=== PATIENT | male | born 2000 | race Caucasian/White ===

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

== ENCOUNTER 2019-06-12 11:21 | Outpatient (CLI) | payer OTHER, SELFPAY ==
[2019-06-12] VITALS (24 sets, daily range): BP systolic 95–154; BP diastolic 65–92; PULSE 58–96; RESP 12–23; TEMP 36.4–36.5; O2SAT 96–99
--- NOTE | 2019-06-12 11:24 | ED.GENADUL_ITS ---
Discharge Plan Disposition Patient Disposition: HOME Condition: Improving Discharge Details Chief Complaint: Palpitatns Clinical Impression: Palpitations Primary Care Provider: Rito Mcgee ED Provider: Mishel Sanchez Home Meds and New Rx's Prescriptions: No Action No Known Home Meds RF: 0 Discharge Instructions Instructions: Palpitations (ED) Additional Instructions: Drink plenty of fluids and get plenty of rest. Alternate tylenol and motrin as needed and directed for pain. Return the campus monitor to the hospital as directed by respiratory therapy. We will receive a call from care management regarding a follow-up appointment with the primary care doctor in the next 1 to 2 weeks. Return to the emergency department if you develop any worsening or new concerning symptoms. Discharge Data Discharge Physician: Mishel Sanchez Medical Decision Making 1120 -- 19-year-old male with a history of depression presents with intermittent palpitations, shortness of breath and right-sided chest pain over the past 2 weeks, with worse recently. Denies any chest pain at this time. EKG notes a rate of 74, sinus with no acute ST ischemic changes. Patient admits to increased personal stress and recent increase in drinking. No family history of sudden cardiac . BP mild to moderately hypertensive. Afebrile. Normal heart rate, respiratory rate and oxygen saturation noted. Patient appears mildly anxious. He has a 2/6 murmur noted left sternal border which is noted in his history since 2011. Differential diagnosis includes stress or anxiety, dehydration, viral syndrome, electrolyte abnormality, arrhythmia. History and presentation not consistent with PE or ACS. PERC negative. Will check screening labs, chest x-ray and give fluids and Ativan and reassess. 1300 -- labs and imaging reviewed and unremarkable. Normal d-dimer, troponin, TSH. Normal chest x-ray. Patient reassessed -he states he feels much better. Heart rate 50s to 70s on monitor throughout ED stay while at rest on the stretcher. Unclear if this rate variation could be the sensation of his palpitations. A repeat EKG was obtained which noted a rate of 59, first-degree block with TN at 238, with normal QTC and QRS no ischemic change. Case and EKG reviewed with cardiology Dr. Talamantes and he agrees with plan for discharge home with Holter monitor. Feels that the first-degree block is likely incidental and not source of his symptoms. Patient placed on care management list to arrange for follow-up appoint with the primary care doctor for reevaluation. Patient feels good to go home. He was advised to return with any concerns. Medical Records Medical records reviewed: Yes I reviewed the patient's medical records. Imaging Data Radiologic Study: Radiologist's impression: XR CHEST 2V PA LATERAL CLINICAL HISTORY: R sided chest pain, sob, r/o acute disease R sided chest pain, sob, r/o acute disease TECHNIQUE: 2D digital imaging was performed. COMPARISON: ACROMIO CLAVICULAR JOINTS from 10/05/2017 FINDINGS: The heart is not enlarged. The lungs are clear and well expanded. No pleural effusion seen. Mediastinal contours appear intact. IMPRESSION: Normal chest Lab Data Lab results reviewed: Yes I reviewed the patient's lab results. Labs: Laboratory Tests Range/Units 06/12/19 06/12/19 06/12/19 11:50 11:50 11:50 WBC (4.4-10.8) k/cumm 6.60 RBC (4.50-6.00) m/cumm 6.36 H Hgb (13.5-17.5) g/dL 13.3 L Hct (40.0-50.0) % 40.4 MCV (80-95) fL 63.5 L MCH (27.0-33.0) pg 20.9 L MCHC (32.0-36.0) g/dL 32.9 RDW (11.8-14.1) % 17.8 H Plt Count (130-400) x1000/uL 329 MPV (8.0-11.0) fL 10.6 Immature Gran % % 0.3 Neutrophils % 68.2 Lymphocytes % 20.0 Monocytes % 9.8 Eosinophils % 1.4 Basophils % 0.3 Absolute Neutrophils (1.2-6.7) k/cumm 4.50 Absolute Lymphocytes (1.2-3.4) k/cumm 1.32 Absolute Monocytes (0.11-0.7) k/cumm 0.65 Absolute Eosinophils (0.0-0.7) k/cumm 0.09 Absolute Basophils (0.0-0.2) k/cumm 0.02 Differential Comment Rbc morph reviewed RBC Morphology See below Anisocytosis 1+ Microcytosis 3+ D-Dimer (<500) ng/mlFEU 293 Sodium (136-145) mmol/L 139 Potassium (3.5-5.1) mmol/L 3.8 Chloride (98-107) mmol/L 103 Carbon Dioxide (21.0-32.0) mmol/L 25.3 Anion Gap (3-11) mmol/L 10.7 BUN (7-18) mg/dL 8 Creatinine (0.70-1.30) mg/dL 0.81 Estimated GFR/1.73 m2 (mL/min/1.73m2) >= 60.00 Glucose (74-106) mg/dL 85 Calcium (8.5-10.1) mg/dL 9.2 Magnesium (1.8-2.4) mg/dL 2.2 Total Bilirubin (0.2-1.0) mg/dL 0.7 AST (15-37) U/L 17 ALT (16-63) U/L 26 Alkaline Phosphatase (46-116) U/L 75 Troponin I (<0.06) ng/Ml < 0.05 Total Protein (6.4-8.2) g/dL 8.1 Albumin (3.4-5.0) g/dL 4.3 TSH (0.36-3.74) uIU/mL 1.40 ECG Data Attestation: I personally reviewed and interpreted this ECG (s) as follows: Interpretation: # 1 -- Rate of 74, sinus. No acute ST elevation or depression. TN 204. QTc 410. QRS 98. No acute change from previous EKG 2018. # 2 -- Rate of 59, sinus. No acute ST elevation or depression. First degree block, TN 238. QTc 406. QRS 94. HPI General Mode of arrival: ambulatory . Date/Time Provider Initiated Documentation: 06/12/19 11:22 . Limitations to Documentation: no limitations . Information obtained by: patient . HPI Narrative: Patient is a 19-year-old male with history of depression presents with intermittent feelings of palpitations, right-sided chest pain and shortness of breath over the past 2 weeks, becoming more frequently over the past few days and worse today. Patient states he has had similar episode in the past before but has not sought medical care. Patient states that he feels like his symptoms might be due to stress as he states he has a lot of personal stress currently. He states the symptoms are usually worse at night but today is worse throughout the day. He denies any exacerbating or alleviating factors. He does admit to drinking more frequently over the past few weeks, and that 3 days ago he drank a half bottle of liquor and several beers. States he drank 4 beers last night. He admits to daily marijuana use but states this is no worse than usual. He denies any caffeine or other drug use. He denies any recent travel, recent surgeries, recent injury, fever, cough, nausea, vomiting. He does admit to intermittent dizziness with his symptoms. Related Data Home Medications Medication Instructions Recorded Confirmed Unknown [No Known Home Meds] 12/19/17 03/06/18 Allergies Allergy/AdvReac Type Severity Reaction Status Date / Time cat dander Allergy Verified 06/12/19 11: dog dander Allergy Verified 06/12/19 11:27 No Known Drug Allergies Allergy Verified 06/12/19 11:27 General CHIDI: 2 Review of Systems All systems reviewed & are unremarkable except as noted in HPI and below Constitutional Constitutional: Reports as per HPI, Denies chills and Denies fever(s) Eyes Eyes: Denies blurry vision ENT Ears, Nose, Mouth, and Throat: Denies dizziness, Denies sore throat and Denies throat swelling Cardiovascular Cardiovascular: Reports chest pain, Reports rapid heart rate and Reports dyspnea Respiratory Respiratory: Denies cough and Reports dyspnea Gastrointestinal Gastrointestinal: Denies abdominal pain, Denies diarrhea and Denies vomiting Genitourinary Genitourinary: Denies hematuria and Denies dysuria Musculoskeletal Musculoskeletal: Denies back pain and Denies numbness Integumentary/Breasts Skin/Breast: Denies lesions and Denies rash Neurologic Neurologic: Denies dizziness, Denies localized weakness and Denies numbness Allergic/Immunologic Allergic/Immunologic: Denies throat swelling [facility] Medical History (Updated 06/12/19 @ 12:09 by Mishel Sanchez DO) AC joint dislocation (10/12/17) Left shoulder Appendicitis (Acute) Depression Drug overdose (Acute) snorting focalin 12/24/17 seen in ER Left wrist fracture surgically repaired Surgical History Left wrist fracture S/P laparoscopic appendectomy (Acute ~10/2017) Social History (Reviewed 12/24/17 @ 21:09 by FAWN Abbott Smoking/Tobacco Use Status: Current every day Alcohol Intake: current Alcohol Intake frequency: 3 or more drinks per day Alcohol type: beer Drug use: Daily Substance use type: marijuana Details: Drinks most days. Do you feel safe at home: Yes Do you feel safe in your relationship?: Yes Additional Social history: states not currently in a relationship Exam Const General: cooperative, healthy appearing and anxious (mild) HENMT Head: normal to inspection Face and sinus: normal facial exam Eyes General: appearance normal, both eyes and all related structures Pupils: PERRL EOM: EOM intact bilaterally Neck Neck: normal visual inspection and No submandibular swelling Lymphatic: no lymphadenopathy noted Chest Chest: normal inspection of the chest and no tenderness Resp Effort & Inspection: normal respiratory effort and able to speak in complete sentences Auscultation: clear to auscultation bilaterally Cardio Rate: regular rate Rhythm: regular rhythm GI Inspection: normal to inspection and scar (well healed, LLQ ) Palpation: soft, not firm, not rigid and nontender Auscultation: normal bowel sounds Back/Spine/Pelvis Thoracic/Lumbar Spine: thoracic and lumbar spine normal to inspection Skin General skin exam: no rashes or lesions noted Neuro General: patient alert, patient awake and patient oriented x3 Cognition: normal cognition Speech: speech normal Motor: muscle tone normal throughout Sensory Exam: no sensory deficits noted Extrem General: normal to inspection, full ROM, capillary refill normal, no calf tenderness bilaterally and no edema Psych Appearance: grossly normal Mental Status: mental status grossly normal Speech and Movement: speech and movement normal Affect: normal affect
[2019-06-12] MEDS: LORazepam 0.5 MG TAB PO (12:00)
[2019-06-12] MEDS: Normal Saline 1,000 ML 1000 ML IV (12:00)
[2019-06-12] MEDS: Normal Saline Flush 10 ML SYR IVP (12:02)
[2019-06-12 12:04] LABS: Abs Immature Grans 0.02 k/cumm (0.0-0.09); Absolute Basophil Count 0.02 k/cumm (0.0-0.2); Absolute Eosinophil Count 0.09 k/cumm (0.0-0.7); Absolute Lymphocyte Count 1.32 k/cumm (1.2-3.4); Absolute Monocyte Count 0.65 k/cumm (0.11-0.7); Basophils % 0.3; Eosinophils % 1.4; HCT 40.4 % (40.0-50.0); HGB 13.3 g/dL (13.5-17.5); Immature Grans % 0.3 %; Mean Corp. HGB Concentration 32.9 g/dL (32.0-36.0); Mean Corpuscular Hemoglobin 20.9 pg (27.0-33.0); Mean Corpuscular Volume 63.5 fL (80-95); Mean Platelet Volume 10.6 fL (8.0-11.0); Monocytes % 9.8; Neutrophils % 68.2; Platelet Count 329 x1000/uL (130-400); RBC 6.36 m/cumm (4.50-6.00); RBC Distribution Width 17.8 % (11.8-14.1)
[2019-06-12 12:15] LABS: Anisocytosis 1+; Diff Comment RBC Morph Reviewed; Microcytosis 3+
[2019-06-12 12:29] LABS: ALT 26 U/L (16-63); AST 17 U/L (15-37); Albumin 4.3 g/dL (3.4-5.0); Alkaline Phosphatase 75 U/L (46-116); Anion Gap 10.7 mmol/L (3-11); BUN 8 mg/dL (7-18); Bilirubin, Total 0.7 mg/dL (0.2-1.0); CO2 25.3 mmol/L (21.0-32.0); CREATININE 0.81 mg/dL (0.70-1.30); Calcium 9.2 mg/dL (8.5-10.1); Chloride 103 mmol/L (98-107); Glucose 85 mg/dL (74-106); Magnesium 2.2 mg/dL (1.8-2.4); Potassium 3.8 mmol/L (3.5-5.1); Sodium 139 mmol/L (136-145); Total Protein 8.1 g/dL (6.4-8.2)
[2019-06-12 12:30] LABS: Troponin I < 0.05 ng/Ml (<0.06)
--- NOTE | 2019-06-12 12:30 | DI.RAD_ITS ---
EXAM: XR CHEST 2V PA LATERAL XR CHEST 2V PA LATERAL CLINICAL HISTORY: R sided chest pain, sob, r/o acute disease R sided chest pain, sob, r/o acute disease TECHNIQUE: 2D digital imaging was performed. COMPARISON: ACROMIO CLAVICULAR JOINTS from 10/05/2017 FINDINGS: The heart is not enlarged. The lungs are clear and well expanded. No pleural effusion seen. Mediastin al contours appear intact. IMPRESSION: Normal chest
[2019-06-12 12:57] LABS: D-Dimer 293 ng/mlFEU (<500)
--- NOTE | 2019-06-16 08:45 | W.HOLTRPT ---
Date of service: 06/16/19 Time of Service: 08:45 Holter Monitor Report Holter Monitor Note: Ordered for the indication of palpitations. ?Patient was in normal sinus rhythm for the majority of the recording. ?There were 0 episodes of supraventricular tachycardia and 2 singular premature atrial contractions. ?There were no episodes of ventricular tachycardia and 7 singular ventricular ectopic beats. ?There were no episodes of atrial fibrillation no pauses greater than 3 seconds and no evidence of high degree heart block. ?There were no patient triggered events.
--- NOTE | 2019-06-16 08:48 | W.ZIOMONITOR ---
Date of service: 06/16/19 Time of Service: 08:48
== END 2019-06-14 18:53 ==
LOC: ER 13:58 → RT 06-14 18:34
PROVIDERS: Emergency Provider Physician Assistant; PCP Pediatrics; Visit Provider Pediatrics
DX: R00.2 Palpitations (principal); I49.1 Atrial premature depolarization; I49.3 Ventricular premature depolarization
CPT/HCPCS: 80053; 71046; 83735; 84443; 84484; 85025; 85379; 93225; 93226

== ENCOUNTER 2019-06-12 18:05 | Emergency (ER) | payer OTHER, SELFPAY | END 2019-06-12 18:20 | disposition home or self-care (01) | LOC: ER 06-19 18:07 | PROVIDERS: Emergency Provider Physician Assistant; PCP Pediatrics | DX: R00.2 Palpitations (principal); F43.0 Acute stress reaction | CPT/HCPCS: 36415; 80053; 93005; 99285; 71046; 83735; 84443; 84484; 85025; 85379; 93010; 93225 ==

== ENCOUNTER 2019-06-14 18:33 | Emergency (ER) | payer OTHER, SELFPAY ==
--- NOTE | 2019-06-18 17:37 | NUR.NOTE ---
Nursing Note: Entered in error by Access. Kelley Bustos.
== END 2019-06-18 17:37 | disposition other institution (70) ==
PROVIDERS: Emergency Provider Emergency Medicine; PCP Family Medicine
DX: R69 Illness, unspecified (principal)

== ENCOUNTER 2019-09-03 07:33 | Outpatient (CLI) | payer OTHER, SELFPAY ==
--- NOTE | 2019-09-03 08:14 | DI.RAD_ITS ---
EXAM: XR CHEST 2V PA LATERAL CLINICAL HISTORY: can't take a deep breath, sob, r06.02,smoker TECHNIQUE: 2D digital imaging was performed. COMPARISON: No exams were available for comparison FINDINGS: MEDIASTINUM: Normal. HEART: Normal. PULMONARY VASCULATURE: Normal. LUNGS: Clear. PLEURAL SPACE: No pleural effusion or pneumothorax. BONE:Normal. OTHER FINDINGS:Normal. IMPRESSION: No acute pulmonary findings. DATA REPOSITORY: RADIATION DOSE DELIVERED:
[2019-09-03 08:56] LABS: D-Dimer 124 ng/mlFEU (<500)
== END 2019-09-03 07:53 ==
PROVIDERS: PCP Family Medicine; Visit Provider Family Medicine
DX: R06.02 Shortness of breath (principal); F17.200 Nicotine dependence, unspecified, uncomplicated
CPT/HCPCS: 36415; 71046; 85379

== ENCOUNTER 2020-02-18 01:56 | Outpatient (CLI) | payer OTHER, SELFPAY ==
[2020-02-21 13:52] LABS: Patient Race White; SARS-CoV-2 RNA Undetected (Undetected); SARS-CoV-2 Specimen Source Nasal
== END 2020-02-18 02:16 ==
PROVIDERS: PCP Family Medicine; Visit Provider Family Medicine
DX: R51.9 Headache, unspecified (principal); Z20.828 Contact with and (suspected) exposure to other viral communicable diseases
CPT/HCPCS: U0003

== ENCOUNTER 2020-03-09 10:38 | Emergency (ER) | payer OTHER, SELFPAY ==
[2020-03-09 10:42] VITALS: BP 153/90; PULSE 85; RESP 17; TEMP 36.4; O2SAT 95
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
== END 2020-03-09 11:22 | disposition home or self-care (01) ==
PROVIDERS: Emergency Provider Emergency Medicine; PCP Family Medicine
DX: S63.591A Other specified sprain of right wrist, initial encounter (principal); V48.6XXA Car passenger injured in noncollision transport accident in traffic accident, initial encounter
CPT/HCPCS: 29125; 99283; 73110

== ENCOUNTER 2020-05-12 09:45 | Outpatient (CLI) | payer OTHER, SELFPAY ==
[2020-05-15 14:01] LABS: Testosterone, Free 16.5 ng/dL (5.25-20.7); Testosterone, Total 501 ng/dL (240-950)
== END 2020-05-12 09:46 | disposition home or self-care (01) ==
LOC: LOS 09:45
PROVIDERS: PCP Family Medicine; Visit Provider Family Medicine
DX: Z00.00 Encounter for general adult medical examination without abnormal findings (principal); N52.9 Male erectile dysfunction, unspecified
CPT/HCPCS: 36415; 84402; 84403

== ENCOUNTER 2020-10-29 10:09 | Outpatient (CLI) | payer OTHER, SELFPAY ==
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
== END 2020-10-29 10:29 ==
PROVIDERS: PCP Family Medicine; Visit Provider Physician Assistant Medical
DX: S99.922A Unspecified injury of left foot, initial encounter (principal); X58.XXXA Exposure to other specified factors, initial encounter
CPT/HCPCS: 73660

== ENCOUNTER 2021-08-24 15:00 | Emergency (ER) | payer OTHER, SELFPAY ==
[2021-08-24 15:10] VITALS: BP 141/77; PULSE 86; RESP 16; TEMP 36.8; O2SAT 98
--- NOTE | 2021-08-24 16:18 | ED.GENADUL_ITS ---
Discharge Plan Disposition Patient Disposition: HOME Condition: Stable Discharge Details Clinical Impression: Strain of muscle and tendon of back wall of thorax, initial encounter Primary Care Provider: Virgilio Perales ED Provider: Son Bradley Home Meds and New Rx's Prescriptions: New cyclobenzaprine 5 mg tablet 5 - 10 mg PO TID PRN (Reason: muscle spasm) Qty: 20 0RF diclofenac potassium 50 mg tablet 50 mg PO TID PRN (Reason: pain) Qty: 14 0RF No Action tadalafil 20 mg tablet 20 mg PO DAILY PRN (Reason: sexual activity) Qty: 30 3RF Rx Instructions: administer approximately 30min before sexual activity; do not use more than 1 dose per 24hrs Discharge Instructions Instructions: Muscle Strain (ED), Back Pain (ED) Additional Instructions: Please take medication as prescribed and continue gentle stretching and range of motion activities. While on prescribed medication please do not take any [id number] NSAIDs which include aspirin, ibuprofen/Motrin, or Aleve. You may take acetaminophen/Tylenol if needed for additional pain control. If you are not improving in the next week please follow-up with your primary care provider and return to emergency department for any new or significant worsening of symptoms. Stand Alone Forms: Work Release Referrals: Virgilio Perales MD [Primary Care Provider] - 1 week (If not improving) Medical Decision Making Patient presenting to the emergency department for chief complaint of back pain. He states he was lifting a mattress and felt something pull in his mid right back. Patient denies any injury or blunt trauma. Patient denies any previous back injuries and states no systemic symptoms. Patient has reproducible tenderness with palpation of paraspinal and subscapular area to the right mid back. No focal tenderness to palpation of the spine, mild to moderate reduction of range of motion secondary to discomfortand exam is otherwise unremarkable. Given clear mechanical injury with no worrisome or emergent findings for life- threatening back pain we will plan on giving patient IM injection of ketorolac. Will prescribe patient NSAIDs along with Flexeril for home use and allow for time off work. Conservative management of back pain was discussed with patient along with clear return and follow-up precautions if not improving. No radiological imaging is required at this time. After discussion of diagnosis and plan of care patient has no further needs, questions, or concerns and states clear understanding to return to the emergency department for any worsening symptoms. HPI General Mode of arrival: ambulatory . Date/Time Provider Initiated Documentation: 08/24/21 15:23 . Limitations to Documentation: no limitations . Information obtained by: patient . History of Present Illness 21 year old M presents to the emergency department with the chief complaint of Right sided back pain, described as moderate, with intensity rated at 8. Quality is described as sharp, and is localized to the back. Patient reports no radiation. Patient started experiencing this hour(s) (5) and it has been constant. Immobilization improves symptom(s), Movement worsens symptoms . Patient notes no other symptoms.. Patient did receive the following treatments prior to arrival, NSAID (400mg at 1200) Related Data Home Medications Medication Instructions Recorded Confirmed tadalafil 20 mg tablet 20 mg PO DAILY PRN sexual activity 08/04/21 08/24/21 #30 tabs cyclobenzaprine 5 mg tablet 5 - 10 mg PO TID PRN muscle spasm 08/24/21 #20 tabs diclofenac potassium 50 mg tablet 50 mg PO TID PRN pain #14 tabs 08/24/21 Previous Rx's Medication Instructions Recorded tadalafil 20 mg tablet 20 mg PO DAILY PRN sexual activity 08/04/21 #30 tabs cyclobenzaprine 5 mg tablet 5 - 10 mg PO TID PRN muscle spasm 08/24/21 #20 tabs diclofenac potassium 50 mg tablet 50 mg PO TID PRN pain #14 tabs 08/24/21 Allergies Allergy/AdvReac Type Severity Reaction Status Date / Time cat dander Allergy Verified 08/24/21 15:15 dog dander Allergy Verified 08/24/21 15:15 No Known Drug Allergies Allergy Verified 08/24/21 15:15 General Stated Complaint: Nk/Back Pain CHIDI: 4 Review of Systems Constitutional Constitutional: Denies chills and Denies fever(s) Cardiovascular Cardiovascular: Denies chest pain and Denies dyspnea on exertion Respiratory Respiratory: Denies cough and Denies dyspnea on exertion Gastrointestinal Gastrointestinal: Denies abdominal pain, Denies change in bowel habits, Denies diarrhea, Denies nausea and Denies vomiting Genitourinary Genitourinary: Denies difficulty urinating and Denies urinary incontinence Musculoskeletal Musculoskeletal: Reports as per HPI and Reports back pain Neurologic Neurologic: Denies sensory deficit PFSH All Active Problems Strain of muscle and tendon of back wall of thorax, initial encounter (Acute) Erectile dysfunction (Acute) SOB (shortness of breath) (Acute) Palpitations (Acute) Routine sports examination for healthy child or adolescent (Acute 08/09/11) Body mass index (BMI) of 5th to 84th percentile for age in childhood (Acute 02/03/16) Heart murmur (Acute 11/15/11) innocent Depression (Acute 04/24/16) Chronic allergic rhinitis (Acute 01/10/17) Drug overdose (Acute) snorting focalin 12/24/17 seen in ER Acute appendicitis with localized peritonitis (Acute) Medical History AC joint dislocation (10/12/17) Left shoulder Appendicitis Depression Left wrist fracture surgically repaired Surgical History Left wrist fracture S/P laparoscopic appendectomy (~10/2017) Family History Mother Healthy adult on routine physical examination Hyperthyroidism Father Healthy adult on routine physical examination Other Diabetes MGF. MGGF, PGM Alcohol abuse MGGM Heart disease PGM Hyperthyroidism MGGM, Mat great aunt Neoplasm MGM, MGF Social History Smoking/Tobacco Use Status: Former Tobacco Use Tobacco: How many years used: 3 Smoking risk assessment performed?: Yes Alcohol Intake: current Alcohol Intake frequency: a few times a month Alcohol type: beer Drug use: Never Substance use type: does not use Caregiver/Support person: No Household members: significant other Housing: apartment Communication Needs: None Do you need help understanding health information?: Rarely Pets and animals: No Sexually active: Yes Do you think of yourself as: straight/heterosexual Current gender identity: male What is your relationship status?: living with partner How often do you talk on the phone with friends or family?: decline to answer How often do you get together with friends or relatives?: decline to answer How often do you attend restorationist or synagogue services?: decline to answer Panel score (0-1 are the most socially isolated patients): 1 Rita/Muslim: No preference Do you feel safe at home: Yes Do you feel safe in your relationship?: Yes Exam Const General: cooperative and no acute distress Orientation: alert, awake and oriented x3 Neck Neck: normal visual inspection, full ROM and no meningeal signs Resp Effort & Inspection: normal respiratory effort Auscultation: clear to auscultation bilaterally Cardio Rate: regular rate Rhythm: regular rhythm Heart Sounds: S1 normal and S2 normal Back/Spine/Pelvis Cervical Spine: normal cervical lordosis, No cervical muscular tenderness and No pain with cervical ROM Thoracic/Lumbar Spine: thoracic and lumbar spine normal to inspection, pain with thoraco-lumbar ROM, thoraco-lumbar ROM limited, No thoracic spinal tenderness, No lumbar spinal tenderness and other (Tenderness to palpation of paraspinal and subscapular area on the right mid) Neuro General: patient alert, patient awake, patient oriented x3 and no focal motor deficits Cognition: normal cognition Speech: speech normal Gait: normal gait Motor: muscle tone normal throughout, strength 5/5 throughout and no movement abnormalities noted Course Vital Signs Vital signs: Vital Signs Temperature 36.8 C 08/24/21 15:10 Pulse 86 08/24/21 15:10 Respiratory Rate 16 08/24/21 15:10 Blood Pressure 141/77 H 08/24/21 15:10 Pulse Oximetry 98 08/24/21 15:10 Temperature 36.8 C 08/24/21 15:10 Temperature Source Skin 08/24/21 15:10 Pulse 86 08/24/21 15:10 Respiratory Rate 16 08/24/21 15:10 Respiratory Effort 08/24/21 16:03 Blood Pressure 141/77 H 08/24/21 15:10 Blood Pressure Position Sitting 08/24/21 15:10 Pulse Oximetry 98 08/24/21 15:10 Oxygen Delivery Method Room Air 08/24/21 15:10 Oxygen Flow Rate 0 08/24/21 15:10 Pain Level 8 08/24/21 15:10 Comment 08/24/21 15:10
[2021-08-24] MEDS: Ketorolac 30 MG/ML VIAL IM (16:25)
== END 2021-08-24 16:30 | disposition home or self-care (01) ==
PROVIDERS: Emergency Provider Nurse Practitioner Family; PCP Family Medicine
DX: S29.002A Unspecified injury of muscle and tendon of back wall of thorax, initial encounter (principal); X50.0XXA Overexertion from strenuous movement or load, initial encounter
CPT/HCPCS: 96372; 99284; 99283; J1885

== ENCOUNTER 2022-10-27 19:23 | Emergency (ER) | payer OTHER, SELFPAY ==
[2022-10-27 19:29] VITALS: BP 132/84; PULSE 82; RESP 20; TEMP 36.8; O2SAT 99
--- NOTE | 2022-10-27 20:10 | W.ED.GENAD ---
Discharge Plan Disposition Patient Disposition: Home Condition: Good Discharge Details Clinical Impression: Hemorrhoid Primary Care Provider: Virgilio Perales ED Provider: Sunil Mosqueda Home Meds and New Rx's Prescriptions: New hydrocortisone acetate [Anusol-HC] 25 mg suppository 25 mg MS BID Qty: 12 0RF hydrocortisone acetate [Anusol-HC] 25 mg suppository 25 mg MS BID Qty: 12 0RF No Action tadalafil 20 mg tablet 20 mg PO DAILY PRN (Reason: sexual activity) Qty: 30 3RF Rx Instructions: administer approximately 30min before sexual activity; do not use more than 1 dose per 24hrs Discharge Instructions Instructions: Hemorrhoids (ED) Additional Instructions: At this time you do have a notable hemorrhoid. Please apply the suppository twice daily as directed. Please continue to take Tylenol and Motrin as needed for pain. Please purchase jlox-umo-ozxcosl sitz bath's and use these 2-3 times per day. Avoid any hard bowel movements or straining. If you notice any worsening of your symptoms, or any new symptoms such as vomiting, diarrhea, fever, chills, shortness of breath, chest pain, numbness, weakness, or fainting , please return immediately to the emergency department for reevaluation. Please follow up with your primary care provider as soon as possible for reassessment and reevaluation. As always, it was a pleasure participating in your medical care today. Stand Alone Forms: Work Release Referrals: Virgilio Perales MD [Primary Care Provider] - Medical Decision Making 22-year-old male presents today for evaluation of rectal pain. Patient states that for the last week he has had a bulge near his rectum, and pain with having bowel movements. Pain is made worse when he sits for long amount of time. He denies any fever or chills. He denies any blood. No other complaints at this time. No other modifying factors. Patient did use yasc-mul-zheticd hemorrhoid cream which has slightly helped. Exam demonstrates a large nonthrombosed hemorrhoid. No active bleeding. Mild tenderness. No evidence of abscess or cellulitis otherwise. Hemorrhoid is not amendable to ligation at this time. Will prescribe Anusol suppository, and recommend sitz bath's and NSAIDs. Patient already is taking stool softener. Discussed red flags for which to return. I have extensively reviewed the treatment plan and discharge instructions with the patient. I have addressed all patient concerns at this time. The patient was made aware of what symptoms to monitor for that would warrant a return to the emergency department. Discussed the plan with the patient, they demonstrate verbal understanding and agreement with our assessment and plan at this time. The documentation in this chart was dictated using [employer] dictation software. Please excuse any dictation errors. HPI General Date/Time Provider Initiated Documentation: 10/27/22 20:10. HPI Narrative: 22-year-old male presents today for evaluation of rectal pain. Patient states that for the last week he has had a bulge near his rectum, and pain with having bowel movements. Pain is made worse when he sits for long amount of time. He denies any fever or chills. He denies any blood. No other complaints at this time. No other modifying factors. Patient did use vzed-ccg-ehmaofx hemorrhoid cream which has slightly helped. Related Data Home Medications Medication Instructions Recorded Confirmed tadalafil 20 mg tablet 20 mg PO DAILY PRN sexual activity 08/04/21 10/27/22 #30 tabs hydrocortisone acetate 25 mg 25 mg MS BID #12 ea 10/27/22 rectal suppository (Anusol-HC) hydrocortisone acetate 25 mg 25 mg MS BID #12 ea 10/27/22 rectal suppository (Anusol-HC) Previous Rx's Medication Instructions Recorded tadalafil 20 mg tablet 20 mg PO DAILY PRN sexual activity 08/04/21 #30 tabs hydrocortisone acetate 25 mg 25 mg MS BID #12 ea 10/27/22 rectal suppository (Anusol-HC) hydrocortisone acetate 25 mg 25 mg MS BID #12 ea 10/27/22 rectal suppository (Anusol-HC) Allergies Allergy/AdvReac Type Severity Reaction Status Date / Time cat dander Allergy Verified 08/24/21 15:15 dog dander Allergy Verified 08/24/21 15:15 No Known Drug Allergies Allergy Verified 08/24/21 15:15 General Stated Complaint: GenMedical CHIDI: 4 Review of Systems All systems reviewed & are unremarkable except as noted in HPI and below PFSH All Active Problems Hemorrhoid (Acute) Encounter for immunization (Acute) Erectile dysfunction (Acute) SOB (shortness of breath) (Acute) Palpitations (Acute) Routine sports examination for healthy child or adolescent (Acute 08/09/11) Body mass index (BMI) of 5th to 84th percentile for age in childhood (Acute 02/03/16) Heart murmur (Acute 11/15/11) innocent Depression (Acute 04/24/16) Chronic allergic rhinitis (Acute 01/10/17) Drug overdose (Acute) snorting focalin 12/24/17 seen in ER Acute appendicitis with localized peritonitis (Acute) Medical History AC joint dislocation (10/12/17) Left shoulder Appendicitis Depression Left wrist fracture surgically repaired Surgical History Left wrist fracture S/P laparoscopic appendectomy (~10/2017) Family History Mother Healthy adult on routine physical examination Hyperthyroidism Father Healthy adult on routine physical examination Other Diabetes MGF. MGGF, PGM Alcohol abuse MGGM Heart disease PGM Hyperthyroidism MGGM, Mat great aunt Neoplasm MGM, MGF Social History Smoking/Tobacco Use Status: Former Tobacco Use Tobacco: How many years used: 3 Smoking risk assessment performed?: Yes Alcohol Intake: current Alcohol Intake frequency: a few times a month Alcohol type: beer Drug use: Never Substance use type: does not use Caregiver/Support person: No Household members: significant other Housing: apartment Communication Needs: None Do you need help understanding health information?: Rarely Pets and animals: No Sexually active: Yes Do you think of yourself as: straight/heterosexual Current gender identity: male What is your relationship status?: living with partner How often do you talk on the phone with friends or family?: decline to answer How often do you get together with friends or relatives?: decline to answer How often do you attend gnosticist or gnosticism services?: decline to answer Panel score (0-1 are the most socially isolated patients): 1 Rita/Restoration: No preference Do you feel safe at home: Yes Do you feel safe in your relationship?: Yes Exam Narrative Exam Narrative: 1.Const: Well-nourished, Well-developed, appearing stated age 2.Eyes: PERRL, no conjunctival injection, and symmetrical lids. 3.ENT: Atraumatic external nose and ears. Moist MM. Neck: Symmetric, trachea midline, No thyromegaly. 4.CVS: +S1/S2, No murmurs or gallops. Peripheral pulses 2+ and equal in all extremities. Brisk capillary refill in all extremities. 5.RESP: Unlabored respiratory effort. Clear to auscultation bilaterally. No wheezes rales or rhonchi 6.GI: Soft, Nontender/Nondistended, No hepatosplenomegaly. No guarding or rebound. Rectal exam demonstrates evidence of a large nonthrombosed hemorrhoid. No rectal or perirectal abscess. No active bleeding. No rectal prolapse. 7.MSK: Normocephalic/Atraumatic, Extremities w/o deformity or ttp No cyanosis or clubbing, Normal movement of all extremities 8.Skin: Warm, Dry. No rashes or lesions. 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 Sensation grossly intact, no focal neurologic deficits. 10.Psych: (AAO) x3. Appropriate mood and affect Course Vital Signs Vital signs: Vital Signs Temperature 36.8 C 10/27/22 19:29 Pulse 82 10/27/22 19:29 Respiratory Rate 20 10/27/22 19:29 Blood Pressure 132/84 10/27/22 19:29 Pulse Oximetry 99 10/27/22 19:29 Temperature 36.8 C 10/27/22 19:29 Temperature Source Oral 10/27/22 19:29 Pulse 82 10/27/22 19:29 Respiratory Rate 20 10/27/22 19:29 Respiratory Effort Normal 10/27/22 19:35 Blood Pressure 132/84 10/27/22 19:29 Blood Pressure Position Sitting 10/27/22 19:29 Pulse Oximetry 99 10/27/22 19:29 Oxygen Delivery Method Room Air 10/27/22 19:29 Oxygen Flow Rate 0 10/27/22 19:29
== END 2022-10-27 20:17 | disposition home or self-care (01) ==
PROVIDERS: Emergency Provider Student in an Organized Health Care Education/Training Program; PCP Family Medicine
DX: K64.9 Unspecified hemorrhoids (principal)
CPT/HCPCS: 99283

== ENCOUNTER 2023-03-29 10:05 | Outpatient (CLI) | payer OTHER, SELFPAY ==
[2023-03-29 13:34] LABS: Calculated LDL 169 mg/dL (<100); Cholesterol 237 mg/dL (<200); Glucose 91 mg/dL (74-106); HDL Cholesterol 48 mg/dL (40-60); Triglyceride 104 mg/dL (<150)
== END 2023-03-29 10:06 | disposition home or self-care (01) ==
LOC: LOS 10:06
PROVIDERS: PCP Family Medicine; Visit Provider Family Medicine
DX: E78.5 Hyperlipidemia, unspecified (principal); R73.9 Hyperglycemia, unspecified
CPT/HCPCS: 36415; 80061; 82947

== ENCOUNTER 2023-08-22 20:54 | Emergency (ER) | payer OTHER, SELFPAY ==
[2023-08-22 20:57] VITALS: BP 148/104; PULSE 98; RESP 18; TEMP 36.9; O2SAT 96
--- NOTE | 2023-08-22 21:08 | ED.GENADUL_ITS ---
Discharge Plan Disposition Patient Disposition: Home Condition: Stable Discharge Details Clinical Impression: Corneal abrasion, right Primary Care Provider: Virgilio Perales ED Provider: Lopez Hayes [place] Meds and New Rx's Prescriptions: Continued sildenafil 100 mg tablet 100 mg PO DAILY PRN (Reason: sexual activity) Qty: 30 5RF Rx Instructions: administer 30 minutes to 4 hours before activity Discharge Instructions Additional Instructions: You have a small abrasion on your eye that usually heals quickly. If not better within a week follow-up with your primary care provider If you feel more ill, have decrease in vision or high fevers return to the emergency department for reevaluation HPI General Mode of arrival: ambulatory . Date/Time Provider Initiated Documentation: 08/22/23 20:56 . Limitations to Documentation: no limitations . Information obtained by: patient . History of Present Illness 23 year old M presents to the emergency department with the chief complaint of right eye discomfort, Patient reports no radiation. Patient started experiencing this day(s) (1) and it has been constant. No relieving factors improve symptom(s), No exacerbating factors reported . Patient notes denies fever/chills. Patient did receive the following treatments prior to arrival, none Related Data Home Medications Medication Instructions Recorded Confirmed sildenafil 100 mg tablet 100 mg PO DAILY PRN sexual 08/07/23 08/22/23 activity #30 tabs Previous Rx's Medication Instructions Recorded sildenafil 100 mg tablet 100 mg PO DAILY PRN sexual 08/07/23 activity #30 tabs Allergies Allergy/AdvReac Type Severity Reaction Status Date / Time cat dander Allergy Verified 03/29/23 09:30 dog dander Allergy Verified 03/29/23 09:30 No Known Drug Allergies Allergy Verified 03/29/23 09:30 General Stated Complaint: EyeProblem CHIDI: 4 Review of Systems All systems reviewed & are unremarkable except as noted in HPI and below Constitutional Constitutional: Denies chills, Denies fever(s) and Denies weakness Eyes Eyes: Denies loss of vision Gastrointestinal Gastrointestinal: Denies vomiting Integumentary/Breasts Skin/Breast: Denies rash Neurologic Neurologic: Denies loss of vision and Denies weakness Endocrine Endocrine: Denies cold intolerance and Denies heat intolerance Allergic/Immunologic Allergic/Immunologic: Denies urticaria Exam Const General: no acute distress Orientation: alert HENNY Head: normal to inspection Ears: external ears normal General nose exam: external nose normal Mouth: moist mucous membranes Eyes Alignment and Position: alignment normal Periorbital: periorbital findings normal Eyelids: eyelids normal Pupils: PERRL Neck Neck: normal visual inspection Resp Effort & Inspection: normal respiratory effort and able to speak in complete sentences Cardio Rate: regular rate Skin General skin exam: no rashes or lesions noted Neuro General: patient alert and patient oriented x3 Extrem General: normal to inspection Psych Mental Status: mental status grossly normal Course Vital Signs Vital signs: Vital Signs Temperature 36.9 C 08/22/23 20:57 Pulse 98 H 08/22/23 20:57 Respiratory Rate 18 08/22/23 20:57 Blood Pressure 148/104 H 08/22/23 20:57 Pulse Oximetry 96 08/22/23 20:57 Temperature 36.9 C 08/22/23 20:57 Temperature Source Skin 08/22/23 20:57 Pulse 98 H 08/22/23 20:57 Respiratory Rate 18 08/22/23 20:57 Respiratory Effort Normal 08/22/23 21:00 Blood Pressure 148/104 H 08/22/23 20:57 Blood Pressure Position Sitting 08/22/23 20:57 Pulse Oximetry 96 08/22/23 20:57 Oxygen Delivery Method Room Air 08/22/23 20:57 Oxygen Flow Rate 0 08/22/23 20:57 Pain Level 7 08/22/23 20:57 Medical Decision Making 23-year-old male comes in with right eye discomfort. He says he was at work yesterday and the swelling close base and he felt something go into his eye. He flushed his eye copiously for 15 to 20 minutes and felt like he got debris out of his eye. Has had some discomfort since then so came here for evaluation. Denies any loss of vision or vision changes. He has a mild erythema of the right lateral conjunctival, pupils are equal and reactive to light, extraocular motion is intact without any deep eye pain. No periorbital swelling. 20/25 vision in left and right eyes. He had immediate relief of pain with instillation of tetracaine. He has no visible foreign body even on eyelid eversion. After fluorescein was placed he did not have any noticeable 1 mm right conjunctival abrasion at the 9 o'clock position. No evidence of globe rupture. 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 Right orbital cellulitis TECHNIQUE: Imaging protocol: Computed tomography of the orbits with contrast. Contrast material: OMNI 350; Contrast volume: 100 ml; Contrast route: INTRAVENOUS (IV); COMPARISON: No relevant prior studies available. FINDINGS: Paranasal sinuses: Mild mucosal thickening and/or retention cyst most likely in paranasal sinuses without air-fluid levels. Orbital cavities: Globe and lens appear intact bilaterally. No retroconal lesions or collections. Bones/joints: No acute fracture or subluxation. Soft tissues: Mild right periorbital swelling, predominately infraorbital, without abscess. IMPRESSION: Mild right periorbital swelling, predominately infraorbital, without abscess. Quality:SDOH Health Related Social Needs: No Data to Display PFSH All Active Problems (Updated 08/22/23 @ 21:31 by Lopez Hayes MD) Corneal abrasion, right (Acute) Encounter for immunization (Acute) Erectile dysfunction (Acute) SOB (shortness of breath) (Acute) Palpitations (Acute) Routine sports examination for healthy child or adolescent (Acute 08/09/11) Body mass index (BMI) of 5th to 84th percentile for age in childhood (Acute 02/03/16) Heart murmur (Acute 11/15/11) innocent Depression (Acute 04/24/16) Chronic allergic rhinitis (Acute 01/10/17) Drug overdose (Acute) snorting focalin 12/24/17 seen in ER Acute appendicitis with localized peritonitis (Acute) Medical History Appendicitis AC joint dislocation (10/12/17) Left shoulder Depression Left wrist fracture surgically repaired Surgical History S/P laparoscopic appendectomy (~10/2017) Left wrist fracture Family History Mother Healthy adult on routine physical examination Hyperthyroidism Father Healthy adult on routine physical examination Other Diabetes MGF. MGGF, PGM Alcohol abuse MGGM Heart disease PGM Hyperthyroidism MGGM, Mat great aunt Neoplasm MGM, MGF Social History (Updated 03/29/23 @ 17:49 by Lizzeth Alvarado) Smoking/Tobacco Use Status: Former Tobacco Use tobacco type: cigarettes Tobacco: How many years used: 3 Second Hand Exposure: Yes Smoking risk assessment performed?: Yes Alcohol Intake: current Alcohol Intake frequency: a few times a month Alcohol type: beer Drug use: Never Substance use type: does not use Adopted: No Caregiver/Support person: No Foster care: No Household members: none Housing: house Communication Needs: None Education Level: high school Do you need help understanding health information?: Rarely 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 Pets and animals: No Sexually active: Yes Do you think of yourself as: straight/heterosexual Current gender identity: male How often do you talk on the phone with friends or family?: decline to answer How often do you get together with friends or relatives?: decline to answer How often do you attend denominational or yarsanism services?: decline to answer Do you belong to any clubs or organized social groups?: decline to answer Rita/Adventism: No preference Seatbelt use: always Helmet use: Yes Helmet use: always Drive intox or ride w/intox commercial driver's license driver: No Working smoke detector in home: Yes Carbon monox detector in home: Yes Firearms in home: No Do you feel safe at home: Yes Do you feel safe in your relationship?: Yes Victim of physical abuse: No Victim of emotional abuse: No Victim of sexual abuse: No
[2023-08-22] MEDS: Tetracaine 0.5% 4 ML BTL OP (21:32)
[2023-08-22] MEDS: Balanced Salt Solution 15 ML BTL OP (21:32)
[2023-08-22] MEDS: Fluorescein STRIPS 100/BOX 1 MG OP (21:32)
[2023-08-22] MEDS: Erythromycin Ophth Oint 3.5 GM TUBE OP (21:32)
== END 2023-08-22 21:37 | disposition home or self-care (01) ==
PROVIDERS: Emergency Provider Emergency Medicine; PCP Family Medicine
DX: S05.01XA Injury of conjunctiva and corneal abrasion without foreign body, right eye, initial encounter; X58.XXXA Exposure to other specified factors, initial encounter; Y99.0 Civilian activity done for income or pay
CPT/HCPCS: 99284